=== PATIENT | female | born 1985 | race Caucasian/White ===

== ENCOUNTER → 2016-07-22 | Outpatient (CLI) | payer BC ==
[2010-10-28 03:55] VITALS: BP 126/78
--- NOTE | 2016-07-22 10:00 | EKG ---
[address] [address] Measurements Intervals [place] Rate: 52 P: 52 DE: 145 QRS: 89 QRSD: 78 T: 66 QT: 404 QTc: 384 Interpretive Statements SINUS BRADYCARDIA WITH SINUS ARRHYTHMIA No previous ECG available for comparison Electronically Signed On 07-22-16 15:20:28 MST by Jose Alejandro Treviño [email or web address]
[2016-07-22 11:26] LABS: BASOPHILS # (AUTO) 0.02 10*3/UL; BASOPHILS % (AUTO) 0.3 % (0-1); EOSINOPHILS % (AUTO) 0.8 % (0-8); HEMATOCRIT 41.8 % (37.0-47.0); HEMOGLOBIN 14.1 g/dL (12.0-16.0); IMM GRAN % (AUTO) 0.2 % (0-5); IMM GRAN# (AUTO) 0.01 10*3/UL; LYMPHOCYTES # (AUTO) 2.21 10*3/uL; LYMPHOCYTES % (AUTO) 35.9 % (10-50); MEAN CORPUSCULAR HEMOGLOBIN 29.4 PG (27-31); MEAN CORPUSCULAR HGB CONC 33.7 g/dL (33-37); MEAN PLATELET VOLUME 10.9 FL (7.4-12.2); MONOCYTES # (AUTO) 0.75 10*3/UL (0.3-0.8); MONOCYTES % (AUTO) 12.2 % (5-15); NEUTROPHILS # (AUTO) 3.12 10*3/UL; NEUTROPHILS % (AUTO) 50.6 % (50-80); RDW COEFFICIENT OF VARIATION 12.8 % (11.5-14.5); RED BLOOD COUNT 4.79 10^6/uL (4.20-5.40); WHITE BLOOD COUNT 6.16 10^3/uL (4.8-10.8)
[2016-07-22 11:29] LABS: PLATELET MORPHOLOGY COMMENT NORMAL MORPHOLOGY (NORM)
[2016-07-22 11:34] LABS: PROTHROMBIN TIME 11.2 secs (9.7-11.4)
[2016-07-22 12:08] LABS: ASPARTATE AMINO TRANSFERASE 19 IU/L (8-39); BLOOD UREA NITROGEN 17 mg/dL (7-22); BUN/CREATININE RATIO 24.28 (6-20); CHLORIDE 105 meq/L (98-112); CREATININE 0.7 mg/dL (0.50-1.20); EST GLOMERULAR FILTRATION > 60 (>60 ml/min/1.73m(2)); GLUCOSE 75 mg/dL (78-110); SODIUM 139 meq/L (135-145); TOTAL PROTEIN 7.8 g/dL (6.1-8.0)
[2016-07-23 06:10] LABS: BILIRUBIN,URINE SMALL (NEG); CLARITY,URINE CLEAR (CLEAR); GLUCOSE, URINE (UA) NEGATIVE (NEG); LEUKOCYTE ESTERASE ,URINE NEGATIVE (NEG); NITRATE,URINE NEGATIVE (NEG); OCCULT BLOOD,URINE NEGATIVE (NEG); PROTEIN,URINE 30 mg/dl (NEG)
[2016-07-23 06:12] LABS: URINE SAMPLE TYPE CLEAN CATCH URINE
[2016-07-23 06:22] LABS: URINE SPECIFIC GRAVITY - MAN 1.034
[2016-07-23 06:23] LABS: SQUAMOUS EPITHELIAL CELL,UR FEW
[2016-07-23 06:24] LABS: BACTERIA,URINE FEW; URINE CRYSTALS MODERATE
== END ==
LOC: MOB LAB 09:35
PROVIDERS: ATTEND Nurse Practitioner Family
DX: Z01.812 Encounter for preprocedural laboratory examination (principal); Z01.810 Encounter for preprocedural cardiovascular examination; R00.1 Bradycardia, unspecified; E03.9 Hypothyroidism, unspecified
CPT/HCPCS: 36415; 80053; 81001; 84439; 84443; 84703; 85025; 85610; 85730; 93005; 93010

== ENCOUNTER → 2016-08-02 | Outpatient (CLI) | payer BC ==
[2010-10-28 03:55] VITALS: BP 126/78
== END ==
LOC: LAB 09:43
PROVIDERS: ATTEND Family Medicine
DX: E03.9 Hypothyroidism, unspecified (principal)
CPT/HCPCS: 36415; 84439; 84443

== ENCOUNTER 2017-01-04 21:36 | Emergency (ER) | payer BC ==
[2017-01-04 21:49] VITALS: RESP 16; TEMP 97.9
[2017-01-04] MEDS ORDERED: diphenhydrAMINE 50 MG/1 ML VIAL IVP ONE (21:51)
[2017-01-04] MEDS ORDERED: KETOROLAC 15 MG/1 ML VIAL IVP ONE (21:51)
[2017-01-04] MEDS ORDERED: Prochlorperazine Edisylate Inj 10 MG in Sodium Chloride 0.9% 500 ML IV ONE (21:51)
[2017-01-04] MEDS ORDERED: NORMAL SALINE 10 ML SYRINGE FLUSH IVP PRN (21:51)
[2017-01-04] MEDS ORDERED: Sodium Chloride 0.9% 1,000 ML PRIMARY IV ONE (21:52)
[2017-01-04] MEDS ORDERED: Prochlorperazine Edisylate Inj 10mg/2ml vial ONE (21:57)
--- NOTE | 2017-01-04 21:57 | PDOC ---
Headache HPI - General Chief Complaint: Headache Stated Complaint: MIAGRAINE Date Seen by Provider: 01/04/17 Time Seen by Provider: 21:53 Source: POSITIVE: Patient Exam Limitations: POSITIVE: No limitations Nurse's Notes Reviewed & Considered: Yes - History of Present Illness Initial Comments: Thi is a 31-year-old female who presents to the emergency department with headache. Patient reports this started prior to arrival. Bilateral frontal with radiation into the back. Worse with light and sound. It has been associated with nausea. She tried Imitrex and Zofran without improvement. Patient reports she typically gets too debilitating migraines a year. This is similar to her prior headache pattern. No fevers or chills. No recent illnesses. - Patient Home Medications Home Medications: Home Medications Acyclovir [Zovirax Tab] 1 tab PO BID #60 tab 05/07/15 Citalopram Hydrobromide [Celexa] 1 tab PO DAILY #30 tab 01/03/16 Hydroxyzine Pamoate 25 mg PO Q4H #30 capsule 07/22/16 Scopolamine [Transderm-Scop] 1 patch TRANSDERM every 72 hours #4 patch 07/22/16 Cyclobenzaprine HCl 1 tab PO TID #30 tab 09/01/16 Levothyroxine Sodium 1 tab PO DAILY #30 tab 11/18/16 Sumatriptan Succinate [Imitrex] 25 mg PO PRN 01/04/17 - Patient Allergies Allergies/Adverse Reactions: Allergies Allergy/AdvReac Type Severity Reaction Status Date / Time No Known Allergies Allergy Verified 01/04/17 21:39 Past Medical History - heen HEENT History: Denies History Cardiovascular History: Denies History Respiratory History: Denies History Gastrointestinal History: Denies History Genitourinary History: Incontinence Endocrine History: Denies History Musculoskeletal History: Denies History Prosthesis or Implant: No Neurological History: Migraines Blood Disorders: Denies History Psychiatric History: Depression, Anxiety Disorders History of Sexually Transmitted Diseases: Yes (chlamydia long time ago before preg's) Female Reproductive History: Denies History Obstetrical History: Denies History Cancer History: Denies History In Past Year Been Physically Harmed or Verbally Threatened: No History of MDRO: No History of Other Communicable Diseases: No Tobacco Use: Never Smoker Alcohol Use: None Substance Use Type: None Previous Surgical History: Yes Type / Date of Surgery: APPY/ TONSILLECTOMY/ TUBAL/LEEP/PLASTIC SURGRY Anesthesia Reactions: No Malignant Hyperthermia: No Significant Family History: Heart disease, Cancer, Diabetes, Hypertension Past Medical History Reviewed: Reviewed - Changes Made ROS - Limitations ROS Limitations: No Limitations Constitution: REPORTS: Denies Symptoms Cardiovascular: REPORTS: Denies Cardiac Symptoms Respiratory: REPORTS: Denies Resp Symptoms Neurological: REPORTS: Headache Gastrointestinal: REPORTS: Nausea. DENIES: Vomitting, Diarrhea Musculoskeletal: REPORTS: Denies MS Symptoms Genitourinary: REPORTS: Denies Symptoms Eyes: REPORTS: Denies Symptoms ENT: REPORTS: Denies Symptoms Skin: REPORTS: Denies Skin Symptoms Headache Exam - General Appearance General Appearance: POSITIVE: Alert, Cooperative, No Acute Distress, No Evidence of Trauma - HEENT Head / Face: POSITIVE: Atraumatic, Normal Inspection Eyes: POSITIVE: PERRL, EOM's Intact Nose: POSITIVE: Inspection Normal - Pupil Size Pupil Size: 5 mm: Bilateral - Neck Neck: POSITIVE: Normal Inspection, Supple - Respiratory / CVS Respiratory / CVS: POSITIVE: Chest Non-Tender, No Respiratory Distress, Heart Sounds Normal, Regular Rate/Rhythm - Abdomen Abdomen: Soft: (All Quadrants), Normal Bowel Sounds: (All Quadrants), No Splenomegaly: (All Quadrants), No Hepatomegaly: (All Quadrants), No Guarding: ( All Quadrants), No Rebound: (All Quadrants) - Skin Skin: POSITIVE: Intact - Extremities Extremity: Non-Tender: (RLE), (LLE), Normal Inspection: (RLE), (LLE) - Neuro / Psych Higher Functions: POSITIVE: Alert, Oriented x3, Normal Speech, Mood Appropriate , Affect Appropriate Cranial Nerves: POSITIVE: Normal As Tested, No Evidence of Acute CVA Sensorimotor: POSITIVE: No Motor Deficits, No Sensory Deficits Headache Progress - Patient's Progress MDM / ED Course: Thi is a 31-year-old female who presents to the emergency department for evaluation of headache. Her vital signs are unremarkable and examination demonstrates no focal neurologic findings. Patient does not have risk factors to suggest this being a subarachnoid or intracranial process. Given her history of migraines and similar pattern headache in the past this is the likely etiology. And IV was established and patient was treated here with Benadryl, Compazine, Toradol. On reevaluation patient is a better and was discharged in stable condition. Patient Care Time - Estimated PCT Patient Care Time (In Minutes): 25 Vital Signs - Recent Vital Signs Vital Signs: Vital Signs (Last 8 hours) Temp Pulse Resp BP Pulse Ox 01/04/17 21:44 97.9 F 62 16 109/70 95 01/04/17 21:40 97.9 F 62 16 109/70 95 - VS Reviewed Vital Signs Reviewed: Yes Discharge Clinical Impression: Migraine Discharge Disposition: Discharged to Home Condition: Good Patient Instructions Given at Discharge: Migraine Headache (ED) Additional Instructions: Thank you for coming to the emergency department. Please get rest this evening and make sure to drink plenty of fluids. Please follow-up with your primary care provider and return to the emergency department for any worsening symptoms.
== END 2017-01-04 23:16 | disposition home or self-care (01) ==
LOC: ER 21:36
DX: G43.009 Migraine without aura, not intractable, without status migrainosus (principal); R11.0 Nausea
CPT/HCPCS: 96361; 96374; 96375; 99283 ×2; J0780; J1200; J1885; J7030

== ENCOUNTER → 2017-02-02 | Outpatient (CLI) | payer SELFPAY ==
[2010-10-28 03:55] VITALS: BP 126/78
[2017-02-02 17:43] LABS: FREE T4 (FREE THYROXINE) 1.11 ng/dL (0.93-1.71)
== END ==
LOC: LAB 15:48
PROVIDERS: ATTEND Family Medicine
DX: E03.9 Hypothyroidism, unspecified (principal)
CPT/HCPCS: 36415; 84439; 84443